=== PATIENT | male | born 1990 | race Caucasian/White ===

== ENCOUNTER 2018-05-17 14:49 | Emergency (ER) | payer MEDICAID ==
--- NOTE | 2018-05-17 15:18 | ED Physician Documentation ---
PD HPI URI - Stated complaint Stated Complaint: CONGESTION/COUGH - Chief complaint Chief Complaint: Resp - History obtained from History obtained from: Patient - History of Present Illness Timing - onset: How many weeks ago (2) Timing duration: Weeks (2) Timing details: Gradual onset, Still present (worse the past 2-3 days, with increased cough, productive sputum and some wisps of bleed with coughing.) Associated symptoms: Sore throat, Productive cough, Hemoptysis, Dyspnea. No: Nasal congestion, Sinus pain, NVD, Bilateral edema Contributing factors: No: Sick contact, Travel, Immunocompromised, COPD / asthma Improves by: No: Medication (OTC cough med) Worsened by: Activity Similar symptoms before: Has not had sx before Recently seen: Not recently seen Review of Systems Constitutional: reports: Chills, Myalgias Nose: denies: Rhinorrhea / runny nose, Congestion Throat: denies: Sore throat Cardiac: reports: Chest pain / pressure. denies: Palpitations, Pedal edema, Calf pain Respiratory: reports: Dyspnea, Cough, Wheezing GI: denies: Abdominal Pain, Nausea, Vomiting, Diarrhea Skin: denies: Rash, Lesions PD PAST MEDICAL HISTORY - Past Medical History Cardiovascular: None Respiratory: None Neuro: None - Past Surgical History Past Surgical History: Yes - Present Medications Home Medications: Ambulatory Orders Medication Instructions Recorded Confirmed Albuterol Sulf [Ventolin Hfa 2 - 3 puffs INH Q4HR PRN #1 inhaler 05/17/18 Inhaler] Benzonatate [Tessalon] 100 mg PO TID PRN #25 capsule 05/17/18 Dexamethasone [Decadron] 4 mg PO DAILY #5 tablet 05/17/18 Doxycycline Monohydrate 100 mg PO BID #14 tablet 05/17/18 - Allergies Allergies/Adverse Reactions: Allergies Allergy/AdvReac Type Severity Reaction Status Date / Time No Known Drug Allergies Allergy Verified 05/17/18 15:06 - Social History Does the pt smoke?: Yes Smoking Status: Current every day smoker Does the pt drink ETOH?: No - Immunizations Immunizations are current?: No Immunizations: TDAP >10years/unknown PD ED PE NORMAL - Vitals Vital signs reviewed: Yes - General General: Alert and oriented X 3, No acute distress, Well developed/nourished - HEENT HEENT: Ears normal, Pharynx benign - Neck Neck: Supple, no meningeal sign, No adenopathy - Cardiac Cardiac: RRR, No murmur - Respiratory Respiratory: Clear bilaterally (peripherally, and with some central/hilar congestion with coughing. ) - Abdomen Abdomen: Soft, Non tender - Derm Derm: Normal color, Warm and dry, No rash - Neuro Neuro: Alert and oriented X 3, No motor deficit, Normal speech Results - Vitals Vitals: Oxygen O2 Source Room air - Rads (name of study) chest xray Radiology: Prelim report reviewed (no infiltrates) PD MEDICAL DECISION MAKING - ED course Complexity details: reviewed results (seems bronchitis, with low suspicion for pneumonia. CXR by nursing triage protocol was normal. ), considered differential (prolonged URI symptoms and now with productive cough. Sounds bacterial secondarily now. ), d/w patient - Sepsis Event Vital Signs: Oxygen O2 Source Room air Departure - Departure Disposition: Home, Self Care Clinical Impression: Acute bacterial bronchitis Condition: Stable Record reviewed to determine appropriate education?: Yes Instructions: ED Upper Resp Infec Abx Tx Prescriptions: Albuterol Sulf [Ventolin Hfa Inhaler] 2 - 3 puffs INH Q4HR PRN #1 inhaler PRN Reason: Shortness Of Air/Wheezing Benzonatate [Tessalon] 100 mg PO TID PRN #25 capsule PRN Reason: Cough Dexamethasone [Decadron] 4 mg PO DAILY #5 tablet Doxycycline Monohydrate 100 mg PO BID #14 tablet Comments: Drink lots of fluids. Use albuterol inhaler 2-3 puffs 4 times a day for the next 7-10 days and extra times if needed for cough and wheezing. Decadron steroid daily for 5 more days. Doxycycline twice daily for a week antibiotic. Add Tessalon if needed for cough. Tylenol or ibuprofen if needed for fever or chills. Recheck if not improved over the next several days to week. Discharge Date/Time: 05/17/18 16:32
--- NOTE | 2018-05-17 15:38 | XRAY Report ---
Procedure Date: 05/17/2018 Accession Number: [id number] / [id number] Procedure: XR - Chest 2 View X-Ray CPT Code: 07977 FULL RESULT: EXAM: CHEST RADIOGRAPHY EXAM DATE: 05/17/2018 03:28 PM. CLINICAL HISTORY: Cough and fever. COMPARISON: None. TECHNIQUE: 2 views. FINDINGS: Lungs/Pleura: Normal volumes. Hazy infiltrate in the right middle lobe. No pleural effusion or pneumothorax. Mediastinum: Normal cardiomediastinal contour. Other: The bones are normal. IMPRESSION: Hazy right middle lobe infiltrate, suspicious for pneumonia. RADIA
[2018-05-17] MEDS ORDERED: ALBUTEROL NEB 2.5 MG/3 ML INH STA (15:41)
[2018-05-17] MEDS ORDERED: BENZONATATE 100 MG CAPSULE PO STA (15:41)
[2018-05-17] MEDS ORDERED: DEXAMETHASONE 10 MG/ML VIAL PO STA (15:41)
[2018-05-17] MEDS ORDERED: DOXYCYCLINE 100 MG TABLET PO STA (15:41)
[2018-05-17 16:32] VITALS: BP 118/79
== END 2018-05-17 16:32 | disposition home or self-care (01) ==
LOC: ED 14:49
DX: J20.9 Acute bronchitis, unspecified (principal); B96.89 Other specified bacterial agents as the cause of diseases classified elsewhere; F17.200 Nicotine dependence, unspecified, uncomplicated
CPT/HCPCS: 71046; 94640; 94664; 99283

== ENCOUNTER 2020-09-05 21:14 | Emergency (ER) | payer MEDICAID, OTHER ==
--- NOTE | 2020-09-05 21:28 | ED Physician Documentation ---
PD HPI URI - Stated complaint Stated Complaint: COUGH - Chief complaint Chief Complaint: Resp - History obtained from History obtained from: Patient - History of Present Illness Timing - onset: How many days ago (6) Timing duration: Days (6) Timing details: Gradual onset, Still present Associated symptoms: Chills, Dry cough, Chest pain (with coughing). No: Fever, Swollen nodes, Hemoptysis, Dyspnea Contributing factors: COPD / asthma. No: Sick contact, Travel, Immunocompromised Improves by: No: Medication Similar symptoms before: Has not had sx before Recently seen: Not recently seen Review of Systems Constitutional: reports: Chills, Myalgias. denies: Fever Nose: reports: Congestion. denies: Rhinorrhea / runny nose Throat: denies: Sore throat Cardiac: reports: Chest pain / pressure (with coughing). denies: Palpitations Respiratory: reports: Dyspnea, Cough, Wheezing GI: denies: Nausea, Vomiting, Diarrhea Skin: denies: Rash Neurologic: reports: Generalized weakness. denies: Focal weakness, Numbness PD PAST MEDICAL HISTORY - Past Medical History Cardiovascular: None Respiratory: None Neuro: None - Past Surgical History Past Surgical History: Yes - Present Medications Home Medications: Ambulatory Orders Medication Instructions Recorded Confirmed Albuterol Sulf [Ventolin Hfa 2 - 3 puffs INH Q4HR PRN #1 inhaler 05/17/18 Inhaler] Benzonatate [Tessalon] 100 mg PO TID PRN #25 capsule 05/17/18 Doxycycline Monohydrate 100 mg PO BID #14 tablet 05/17/18 dexAMETHasone [Decadron] 4 mg PO DAILY #5 tablet 05/17/18 Benzonatate [Tessalon Perle] 100 mg PO TID PRN #20 capsule 09/05/20 dexAMETHasone [Decadron] 4 mg PO DAILY #5 tablet 09/05/20 - Allergies Allergies/Adverse Reactions: Allergies Allergy/AdvReac Type Severity Reaction Status Date / Time No Known Drug Allergies Allergy Verified 09/05/20 21:25 - Social History Does the pt smoke?: Yes Smoking Status: Current every day smoker Does the pt drink ETOH?: No - Immunizations Immunizations are current?: No Immunizations: TDAP >10years/unknown - POLST Patient has POLST: No PD ED PE NORMAL - Vitals Vital signs reviewed: Yes - General General: Alert and oriented X 3, No acute distress, Well developed/nourished - HEENT HEENT: Pharynx benign - Neck Neck: Supple, no meningeal sign, No adenopathy - Cardiac Cardiac: RRR, No murmur - Respiratory Respiratory: Clear bilaterally - Abdomen Abdomen: Soft, Non tender - Derm Derm: Normal color, Warm and dry - Extremities Extremities: No edema, No calf tenderness / cord - Neuro Neuro: Alert and oriented X 3, No motor deficit, Normal speech Results - Vitals Vitals: Vital Signs - 24 hr 09/05/20 09/05/20 09/05/20 21:20 21:28 22:29 Temperature 36.4 C L 36.4 C L 36.5 C Heart Rate 77 77 75 Respiratory 14 14 18 Rate Blood Pressure 124/94 H 124/94 H 125/82 H O2 Saturation 99 99 100 Oxygen O2 Source Room air - Rads (name of study) chest xray Radiology: Prelim report reviewed (NO ifniltrates), See rad report PD MEDICAL DECISION MAKING - ED course Complexity details: reviewed results, considered differential, d/w patient Departure - Departure Disposition: 01 Home, Self Care Clinical Impression: Upper respiratory infection Qualifiers: URI type: unspecified URI Qualified Code(s): J06.9 - Acute upper respiratory infection, unspecified Condition: Stable Record reviewed to determine appropriate education?: Yes Instructions: ED Upper Resp Infec No Abx Tx Prescriptions: dexAMETHasone [Decadron] 4 mg PO DAILY #5 tablet Benzonatate [Tessalon Perle] 100 mg PO TID PRN #20 capsule PRN Reason: Cough Comments: Your chest x-ray appears clear without any signs of pneumonia nor any abnormal masses or collapsed lung (pneumothorax). Presume the pain is related to inflammation around the lung from the cough (pleurisy) or possibly just muscular from the cough as well. Continue with honey and water and lozenges if needed. Consider some anti- inflammatory such as ibuprofen 2-3 times a day for the next few days for inflammation. At this point I would not see an indication for antibiotics as it sounds likely viral. Your Covid test will take a day or 2 for the results. I think it less likely that that is the cause of your illness. If the cough persists or increases, you could add on Tessalon if needed for cough and Decadron for inflammation. However, no need for these if you are just improving. Forms: Activity restrictions Discharge Date/Time: 09/05/20 22:29
[2020-09-05] MEDS ORDERED: IBUPROFEN 600 MG TABLET PO STA (21:54)
[2020-09-05 22:30] VITALS: BP 125/82
--- NOTE | 2020-09-06 08:06 | XRAY Report ---
PROCEDURE: Chest 1 View X-Ray INDICATIONS: chest pain TECHNIQUE: One view of the chest was acquired. COMPARISON: 05/17/2018 FINDINGS: Surgical changes and devices: None. Lungs and pleura: No pleural effusions or pneumothorax. Lungs are clear. Mediastinum: Mediastinal contours appear normal. Heart size is normal. Bones and chest wall: No suspicious bony lesions. Overlying soft tissues appear unremarkable. IMPRESSION: No acute cardiopulmonary disease process. Reviewed by: Adela Jama MD, PhD on 09/06/2020 8:04 AM PDT Approved by: Adela Jama MD, PhD on 09/06/2020 8:04 AM PDT Station ID: [id number]
== END 2020-09-05 22:29 | disposition home or self-care (01) ==
LOC: ED 21:14
DX: J06.9 Acute upper respiratory infection, unspecified (principal); F17.200 Nicotine dependence, unspecified, uncomplicated; Z20.828 Contact with and (suspected) exposure to other viral communicable diseases
CPT/HCPCS: 71045; 87635; 99284; A9270

== ENCOUNTER 2020-12-18 17:25 | Emergency (ER) | payer OTHER ==
[2020-12-18] MEDS ORDERED: cefTRIAXone 250 MG VIAL IM STA (17:42)
[2020-12-18] MEDS ORDERED: LIDOCAINE 1% 2 ML VIAL MC ONE (17:42)
[2020-12-18] MEDS ORDERED: DOXYCYCLINE 100 MG TABLET PO STA (17:43)
--- NOTE | 2020-12-18 17:51 | ED Physician Documentation ---
History of Present Illness - Stated complaint Stated Complaint: MALE - Chief complaint Chief Complaint: General - History obtained from History obtained from: Patient - History of Present Illness Timing: Today Pain level max: 0 Pain level now: 0 - Additonal information Additional information: 22-year-old male presents to the emergency department stating his significant other tested positive for chlamydia. He is here to be tested and treated. Patient states he is asymptomatic. Review of Systems Constitutional: denies: Fever, Chills GI: denies: Vomiting, Diarrhea Skin: denies: Rash Musculoskeletal: denies: Neck pain, Back pain Neurologic: denies: Headache PD PAST MEDICAL HISTORY - Past Medical History Cardiovascular: None Respiratory: None Neuro: None - Past Surgical History Past Surgical History: Yes - Present Medications Home Medications: Ambulatory Orders Medication Instructions Recorded Confirmed Albuterol Sulf [Ventolin Hfa 2 - 3 puffs INH Q4HR PRN #1 inhaler 05/17/18 Inhaler] Benzonatate [Tessalon] 100 mg PO TID PRN #25 capsule 05/17/18 Doxycycline Monohydrate 100 mg PO BID #14 tablet 05/17/18 dexAMETHasone [Decadron] 4 mg PO DAILY #5 tablet 05/17/18 Benzonatate [Tessalon Perle] 100 mg PO TID PRN #20 capsule 09/05/20 dexAMETHasone [Decadron] 4 mg PO DAILY #5 tablet 09/05/20 Doxycycline Hyclate 100 mg PO BID #28 12/18/20 - Allergies Allergies/Adverse Reactions: Allergies Allergy/AdvReac Type Severity Reaction Status Date / Time No Known Drug Allergies Allergy Verified 12/18/20 17:34 - Social History Does the pt smoke?: Yes Smoking Status: Current every day smoker Does the pt drink ETOH?: No Does the pt have substance abuse?: Yes - Immunizations Immunizations are current?: No Immunizations: TDAP >10years/unknown - POLST Patient has POLST: No PD ED PE NORMAL - Vitals Vital signs reviewed: Yes - General General: Alert and oriented X 3, No acute distress - HEENT HEENT: Moist mucous membranes - Male Male : Pt declined - Derm Derm: Warm and dry - Neuro Neuro: Alert and oriented X 3 - Psych Psych: Normal mood, Normal affect Results - Vitals Vitals: Vital Signs - 24 hr 12/18/20 12/18/20 17:29 18:27 Temperature 36.8 C 36.8 C Heart Rate 62 63 Respiratory 14 19 Rate Blood Pressure 140/90 H 125/87 H O2 Saturation 98 99 Oxygen O2 Source Room air - Labs Labs: Laboratory Tests 12/18/20 12/18/20 17:40 17:40 Urine Color YELLOW Urine Clarity CLEAR Urine pH 8.0 H Ur Specific [place] 1.015 Urine Protein NEGATIVE Urine Glucose (UA) NEGATIVE Urine Ketones NEGATIVE Urine Occult Blood NEGATIVE Urine Nitrite NEGATIVE Urine Bilirubin NEGATIVE Urine Urobilinogen 0.2 (NORMAL) Ur Leukocyte Esterase SMALL H Urine RBC 0-5 Urine WBC 6-10 H Ur Squamous Epith Cells RARE Squamous Urine Bacteria Rare Chlam trachomat DNA PCR POSITIVE A N.gonorrhoeae DNA (PCR) NEGATIVE T. vaginalis (PCR) TNP PD MEDICAL DECISION MAKING - ED course Complexity details: considered differential, d/w patient ED course: 30-year-old male with chlamydia contact. Given Rocephin and doxycycline. Recommend he follow-up with the PCP for full STD and HIV testing. Patient counseled regarding signs and symptoms for which I believe and urgent re- evaluation would be necessary. Patient with good understanding of and agreement to plan and is comfortable going home at this time This document was made in part using voice recognition software. While efforts are made to proofread this document, sound alike and grammatical errors may occur. Departure - Departure Disposition: 01 Home, Self Care Clinical Impression: Chlamydia contact Condition: Good Instructions: ED STD Male Treated Follow-Up: your,doctor in 1 week [Other] Prescriptions: Doxycycline Hyclate 100 mg PO BID #28 Comments: Take all antibiotics until gone. Return if you worsen. Your partner should be tested and treated as well. The confirmatory testing will take 2 to 3 days to result. Discharge Date/Time: 12/18/20 18:30
[2020-12-18 17:58] LABS: BILIRUBIN,URINE NEGATIVE (NEGATIVE); GLUCOSE, URINE (UA) NEGATIVE (NEGATIVE); KETONES,URINE (UA) NEGATIVE (NEGATIVE); LEUKOCYTE ESTERASE, URINE SMALL (NEGATIVE); NITRITE,URINE NEGATIVE (NEGATIVE); OCCULT BLOOD,URINE NEGATIVE (NEGATIVE); PROTEIN,URINE NEGATIVE (NEGATIVE); UROBILINOGEN,URINE 0.2 (NORMAL) E.U./dL (NORMAL)
[2020-12-18 18:06] LABS: BACTERIA,URINE Rare /HPF (None Seen); CLARITY,URINE CLEAR (CLEAR); RBC,URINE 0-5 /HPF (0-5); SQUAMOUS EPITHELIAL CELL,UR RARE Squamous (<= Few)
[2020-12-18 18:27] VITALS: BP 125/87
== END 2020-12-18 18:30 | disposition home or self-care (01) ==
LOC: ED 17:25
DX: Z20.2 Contact with and (suspected) exposure to infections with a predominantly sexual mode of transmission (principal); F17.200 Nicotine dependence, unspecified, uncomplicated
CPT/HCPCS: 81001; 87491; 87591; 96372; 99283; A9270; 87661

== ENCOUNTER 2021-07-08 21:15 | Emergency (ER) | payer SELFPAY ==
[2021-07-08] MEDS ORDERED: LIDOCAINE VISCOUS 2% 15 ML UDC MM STA (21:41)
[2021-07-08] MEDS ORDERED: MAG HYDROX/AL HYDROX/SIMETH 30 ML UDC PO STA (21:41)
--- NOTE | 2021-07-08 21:42 | ED Physician Documentation ---
History of Present Illness - Stated complaint Stated Complaint: FB IN THROAT - Chief complaint Chief Complaint: General - History obtained from History obtained from: Patient - Additonal information Additional information: Eating dinner consisting of pork chops, corn, and macaroni. He laid down on his right side to watch TV for about half an hour. Then he drank some soda and felt like something was stuck on the left side of his neck near the hyoid. He was vomiting up everything he drank after that. No respiratory difficulty. Review of Systems Constitutional: reports: Reviewed and negative Eyes: reports: Reviewed and negative Ears: reports: Reviewed and negative Nose: reports: Reviewed and negative Throat: reports: Reviewed and negative PD PAST MEDICAL HISTORY - Past Medical History Cardiovascular: None Respiratory: None Neuro: None - Past Surgical History Past Surgical History: Yes - Present Medications Home Medications: Ambulatory Orders Medication Instructions Recorded Confirmed Albuterol Sulf [Ventolin Hfa 2 - 3 puffs INH Q4HR PRN #1 inhaler 05/17/18 Inhaler] Benzonatate [Tessalon] 100 mg PO TID PRN #25 capsule 05/17/18 Doxycycline Monohydrate 100 mg PO BID #14 tablet 05/17/18 dexAMETHasone [Decadron] 4 mg PO DAILY #5 tablet 05/17/18 Benzonatate [Tessalon Perle] 100 mg PO TID PRN #20 capsule 09/05/20 dexAMETHasone [Decadron] 4 mg PO DAILY #5 tablet 09/05/20 Doxycycline Hyclate 100 mg PO BID #28 12/18/20 - Allergies Allergies/Adverse Reactions: Allergies Allergy/AdvReac Type Severity Reaction Status Date / Time No Known Drug Allergies Allergy Verified 07/08/21 21:24 - Social History Does the pt smoke?: Yes Smoking Status: Current every day smoker Does the pt drink ETOH?: No Does the pt have substance abuse?: Yes - Immunizations Immunizations are current?: No Immunizations: TDAP >10years/unknown - POLST Patient has POLST: No PD ED PE NORMAL - Vitals Vital signs reviewed: Yes - General General: Alert and oriented X 3, No acute distress - HEENT HEENT: Other (Phonation is normal, visualized portions of the oropharynx are normal. He is tolerating drinking water without issue.) - Neuro Neuro: Alert and oriented X 3, Normal speech Results - Vitals Vitals: Vital Signs - 24 hr 07/08/21 07/08/21 07/08/21 21:24 21:36 22:11 Temperature 36.8 C 36.8 C Heart Rate 73 88 86 Respiratory 16 16 16 Rate Blood Pressure 130/90 H 135/102 H 130/90 H O2 Saturation 99 96 98 Oxygen O2 Source Room air PD MEDICAL DECISION MAKING - ED course ED course: Tolerating PO s difficulty. Normal phonation. Better after PO lidocaine. Departure - Departure Disposition: 01 Home, Self Care Clinical Impression: Foreign body sensation in throat Condition: Good Record reviewed to determine appropriate education?: Yes Instructions: ED Foreign Body Esophageal Rslv Comments: Generally the sensation will go away after a day or 2. If it is persistent, you should follow-up with ENT for nasolaryngoscopy. The closest is in [place], phone number is [phone]. Discharge Date/Time: 07/08/21 22:11
[2021-07-08 22:12] VITALS: BP 130/90
== END 2021-07-08 22:11 | disposition home or self-care (01) ==
LOC: ED 21:15
DX: R09.89 Other specified symptoms and signs involving the circulatory and respiratory systems (principal); R11.10 Vomiting, unspecified; F17.200 Nicotine dependence, unspecified, uncomplicated
CPT/HCPCS: 99282; A9270